=== PATIENT | male | born 1940 | race Caucasian/White ===

== ENCOUNTER 2020-10-06 02:29 | Emergency (ER) | payer MEDICARE, BC ==
[~2020-10-06] VITALS: Ht 185.4 cm; Wt 102.7 kg
[2020-10-06] MEDS ORDERED: KETOROLAC 30 MG/ML 1ML VIAL IV ONE (03:30)
[2020-10-06] MEDS ORDERED: METHOCARBAMOL 1,000 MG/10 ML VIAL (J2800) IV ONE (03:30)
--- NOTE | 2020-10-06 04:20 | REPVR ---
PROCEDURE INFORMATION: Exam: CT Lumbar Spine Without Contrast Exam date and time: 10/06/2020 3:36 AM Age: 80 years old Clinical indication: Pain and injury or trauma; Fall; Blunt trauma (contusions or hematomas); Lumbago with sciatica; Left; Additional info: Left sided back pain after fall TECHNIQUE: Imaging protocol: Computed tomography images of the lumbar spine without contrast. Radiation optimization: All CT scans at this facility use at least one of these dose optimization techniques: automated exposure control; mA and/or kV adjustment per patient size (includes targeted exams where dose is matched to clinical indication); or iterative reconstruction. COMPARISON: No relevant prior studies available. FINDINGS: Vertebrae: There is normal alignment of the visualized spine. Vertebral body heights are normal. There is a fracture involving the superior endplate of the L4 vertebral body without significant depression. Large endplate spurs are seen throughout the lumbar spine. T12-L1: There is a large Schmorl's node in the inferior endplate of T12. The disc is narrowed. There is a small posterior disc osteophyte complex. Mild central canal stenosis. L1-L2: Schmorl's node in the superior endplate of L2. Moderate to severe narrowing of the disc. Large posterior disc osteophyte complex and mild facet joint hypertrophy. Moderate to severe central canal stenosis and bony encroachment upon the bilateral neural foramen. L2-L3: Calcification within the disc. Disc height is maintained. Small posterior disc bulge. Mild facet joint hypertrophy. Mild central canal stenosis. Mild bilateral neural foraminal narrowing. L3-L4: Nondisplaced fracture involving the superior endplate of L4. Calcification within the disc. Fairly well preserved disc height. Posterior disc osteophyte complex and facet and ligamentum flavum hypertrophy resulting in severe central canal stenosis. Mild bilateral neural foraminal narrowing. L4-L5: Calcification within the disc. Fairly well preserved disc height. Posterior disc osteophyte complex, ligamentum flavum hypertrophy and facet hypertrophy. Severe central canal stenosis and moderate bilateral neural foraminal narrowing. L5-S1: Disc calcification and mild narrowing. Posterior disc osteophyte complex. Minimal facet hypertrophy. Mild central canal stenosis. Mild bilateral neural foraminal narrowing. Vasculature: Atherosclerotic changes are present in the abdominal aorta and the iliac arteries. Soft tissues: The paraspinous soft tissues appear unremarkable. IMPRESSION: 1. Fracture involving superior endplate of the L4 vertebral body, without significant depression or loss of height of the vertebra. 2. Multilevel degenerative disc disease with large endplate spurs throughout the lumbar spine and disc osteophyte complexes at each level. Central canal stenosis exacerbated by facet arthropathy and ligamentum flavum hypertrophy at the L3-L4 and L4-L5 levels. Electronically signed by: Angie Benitez On 10/06/2020 04:20:13 AM
[2020-10-06 04:30] VITALS: BP 146/76
[2020-10-06] MEDS ORDERED: OXYCODONE/APAP 5MG/325MG(BULK FOR ED) 1 TABLET PO ONE (04:45)
[2020-10-06] MEDS ORDERED: ROBA750T4 PO (04:46)
[2020-10-06] MEDS ORDERED: PERC5TAB12 PO (04:46)
== END 2020-10-06 04:58 | disposition home or self-care (01) ==
LOC: M ED 02:29
DX: S32.040A Wedge compression fracture of fourth lumbar vertebra, initial encounter for closed fracture (principal); W01.198A Fall on same level from slipping, tripping and stumbling with subsequent striking against other object, initial encounter; Y92.89 Other specified places as the place of occurrence of the external cause; Y93.89 Activity, other specified; Y99.8 Other external cause status; M54.9 Dorsalgia, unspecified; G89.29 Other chronic pain; I25.10 Atherosclerotic heart disease of native coronary artery without angina pectoris
CPT/HCPCS: 72131; 96374; 96375; 99284; J1885; J2800

== ENCOUNTER → 2022-03-06 | Outpatient (CLI) | payer MEDICARE, BC ==
[~2022-03-06] MED LIST: PERC5TAB12 PO; ROBA750T4 PO
== END ==
LOC: M WUC 13:59
PROVIDERS: ATTEND Family Medicine
DX: M25.561 Pain in right knee (principal); M17.11 Unilateral primary osteoarthritis, right knee

== ENCOUNTER → 2022-12-22 | Outpatient (CLI) | payer MEDICARE, BC | LOC: M WUC 13:15 | PROVIDERS: ATTEND Internal Medicine | DX: M54.31 Sciatica, right side (principal); M47.816 Spondylosis without myelopathy or radiculopathy, lumbar region; M47.817 Spondylosis without myelopathy or radiculopathy, lumbosacral region ==

== ENCOUNTER 2023-02-02 02:07 | Emergency (ER) | payer MEDICARE, BC ==
[2023-02-02] MEDS ORDERED: METHOCARBAMOL 1,000 MG/10 ML VIAL IV ONE (03:45)
[2023-02-02] MEDS ORDERED: KETOROLAC 30 MG/ML 1ML VIAL IV ONE (03:45)
[2023-02-02 04:27] LABS: BLOOD UREA NITROGEN 18 MG/DL (9-23); CALCIUM LEVEL 7.9 MG/DL (8.3-10.6); CARBON DIOXIDE LEVEL 27 MMOL/L (20-31); CHLORIDE LEVEL 104 MMOL/L (98-107); CREATININE FOR GFR 0.71 MG/DL (0.70-1.30); GLOMERULAR FILTRATION RATE > 60.0 (>35); GLUCOSE, FASTING 207 MG/DL (74-106); POTASSIUM SERUM 4.1 MMOL/L (3.5-5.1); SODIUM LEVEL 139 MMOL/L (136-145)
[2023-02-02] MEDS ORDERED: PERCOCET 5MG/325MG TAB PO ONE (06:20)
[2023-02-02] MEDS ORDERED: METH-1165 PO (08:58)
[2023-02-02] MEDS ORDERED: PERC5TAB12 PO (08:59)
[2023-02-02 09:20] VITALS: BP 154/68
== END 2023-02-02 09:40 | disposition home or self-care (01) ==
LOC: M ED 02:07 → EDBD 02:07 → M ED 09:40
DX: M50.23 Other cervical disc displacement, cervicothoracic region (principal); M17.11 Unilateral primary osteoarthritis, right knee; K08.89 Other specified disorders of teeth and supporting structures; M25.78 Osteophyte, vertebrae; E11.9 Type 2 diabetes mellitus without complications
CPT/HCPCS: 72125; 73564; 80048; 96374; 96375; 99284; J1885; J2800

== ENCOUNTER 2023-03-24 23:12 | Emergency (ER) | payer MEDICARE, BC ==
[~2023-03-24] VITALS: Ht 185.4 cm; Wt 102.9 kg
[~2023-03-24 23:12] MED LIST changes: +METH-1165 PO
[2023-03-25 00:19] LABS: BASO % 0.3 % (0.0-1.0); EOS # 0.1 10^3/uL (0.0-0.5); EOS % 1.9 % (0.0-3.0); HEMATOCRIT 37.9 % (42.0-52.0); HEMOGLOBIN 12.4 g/dl (13.5-17.5); LYMPH # 1.5 10^3/uL (1.5-5.0); LYMPH % 25.3 % (24.0-44.0); MEAN CORPUSCULAR HEMOGLOBIN 30.6 pg (27.0-33.0); MEAN CORPUSCULAR HGB CONC 32.7 g/dl (32.0-36.5); MEAN CORPUSCULAR VOLUME 93.6 fl (80.0-96.0); MONO # 0.6 10^3/uL (0.0-0.8); MONO % 10.6 % (2.0-8.0); NEUTROPHILS # 3.6 10^3/uL (1.5-8.5); NEUTROPHILS % 60.9 % (36.0-66.0); PLATELET COUNT, AUTOMATED 191 10^3/uL (150-450); RED BLOOD COUNT 4.05 10^6/uL (4.30-6.10); WHITE BLOOD COUNT 5.9 10^3/uL (4.0-10.0)
[2023-03-25 00:28] LABS: INR 1.04; PROTHROMBIN TIME 13.8 SECONDS (12.5-14.5)
[2023-03-25 00:29] LABS: PARTIAL THROMBOPLASTIN TIME 40.2 SECONDS (24.8-34.2)
[2023-03-25] MEDS ORDERED: MORPHINE 2 MG/ML 1ML VIAL IV PRN (00:40)
[2023-03-25 00:42] LABS: ETHYL ALCOHOL (ETHANOL) < 0.003 % (0.000-0.010)
[2023-03-25 00:43] LABS: BLOOD UREA NITROGEN 21 MG/DL (9-23); CALCIUM LEVEL 8.5 MG/DL (8.3-10.6); CARBON DIOXIDE LEVEL 27 MMOL/L (20-31); CHLORIDE LEVEL 104 MMOL/L (98-107); CK-MB VALUE MASS 1.6 NG/ML (<3.6); CPK CREATINE PHOSPHOKINASE 191 U/L (46-171); CREATININE FOR GFR 0.93 MG/DL (0.70-1.30); GLOMERULAR FILTRATION RATE > 60.0 (>35); GLUCOSE, FASTING 180 MG/DL (74-106); MAGNESIUM LEVEL 1.8 MG/DL (1.8-2.4); MB/CK RELATIVE INDEX 0.83 (< OR =4); POTASSIUM SERUM 3.8 MMOL/L (3.5-5.1); SODIUM LEVEL 136 MMOL/L (136-145)
[2023-03-25 00:45] LABS: THYROID STIMULATING HORMONE 3.287 uIU/ML (0.55-4.78)
[2023-03-25 00:46] LABS: FREE T4 1.12 NG/DL (0.89-1.76)
[2023-03-25] MEDS ORDERED: ISOVUE-370 76% 100ML VIAL As Ordered ONE (02:48)
[2023-03-25 03:18] LABS: AMPHETAMINES LEVEL URINE NEGATIVE (NEGATIVE); BARBITURATES URINE NEGATIVE (NEGATIVE); BENZODIAZEPINES URINE NEGATIVE (NEGATIVE); CANNABINOIDS URINE NEGATIVE (NEGATIVE); COCAINE METABOLITE URINE NEGATIVE (NEGATIVE); METHADONE URINE NEGATIVE (NEGATIVE); PHENCYCLIDINE URINE NEGATIVE (NEGATIVE)
[2023-03-25 03:31] LABS: OPIATES URINE POSITIVE (NEGATIVE)
[2023-03-25] MEDS ORDERED: AUGMENTIN 875 MG TAB PO ONE (03:35)
[2023-03-25] MEDS ORDERED: KETOROLAC 30 MG/ML 1ML VIAL IV ONE (03:35)
[2023-03-25 05:00] VITALS: BP 193/84
[2023-03-25] MEDS ORDERED: OXYC1TAB23 PO (05:10)
[2023-03-25] MEDS ORDERED: KETO10TAB PO (05:10)
[2023-03-25] MEDS ORDERED: AMOX875T2 PO (05:10)
[2023-03-25] MEDS ORDERED: OXYCODONE/APAP 5MG/325MG(HOME DOSE PACK) PO ONE (05:15)
== END 2023-03-25 05:42 | disposition home or self-care (01) ==
LOC: M ED 23:12
DX: K08.89 Other specified disorders of teeth and supporting structures (principal); E11.9 Type 2 diabetes mellitus without complications; I10 Essential (primary) hypertension; G47.30 Sleep apnea, unspecified; I44.7 Left bundle-branch block, unspecified; E78.00 Pure hypercholesterolemia, unspecified; Z79.82 Long term (current) use of aspirin; Z79.899 Other long term (current) drug therapy
CPT/HCPCS: 70487; 71045; 80048; 80307; 82077; 82550; 82553; 83605; 83735; 84439; 84443; 84484; 85025; 85610; 85730; 87040; 87486; 87581; 87633; 87798; 93005; 93041; 94760; 96365; 96366; 96375; 99285; J1885; Q9967

== ENCOUNTER 2023-04-19 12:02 | Emergency (ER) | payer MEDICARE, BC ==
[~2023-04-19] VITALS: Ht 185.4 cm; Wt 101.5 kg
[~2023-04-19 12:02] MED LIST changes: +AMOX875T2 PO; +KETO10TAB PO; +OXYC1TAB23 PO
[2023-04-19] MEDS ORDERED: GABA-1171 PO (12:42)
[2023-04-19] MEDS ORDERED: predniSONE 20 MG TAB PO ONE (13:05)
[2023-04-19] MEDS ORDERED: KETOROLAC 30 MG/ML 1ML VIAL IV ONE (13:05)
[2023-04-19] MEDS ORDERED: MORPHINE 2 MG/ML 1ML VIAL IV ONE ×3 (14:10→19:05)
[2023-04-19] MEDS ORDERED: GABAPENTIN 100 MG CAP PO ONE (17:15)
[2023-04-19] MEDS ORDERED: OXYCODONE/APAP 5MG/325MG(HOME DOSE PACK) PO ONE (20:35)
[2023-04-19] MEDS ORDERED: METHOCARBAMOL 1,000 MG/10 ML VIAL IV ONE (20:35)
[2023-04-19 20:39] LABS: RSV AMPLIFICATION NEGATIVE (NEGATIVE)
[2023-04-19] MEDS ORDERED: METH-1164 PO (20:44)
[2023-04-19] MEDS ORDERED: OXYC10TA3 PO (20:44)
[2023-04-19 21:20] VITALS: BP 149/66; TEMP 97.4; O2SAT 96
[2023-04-21] MEDS ORDERED: ASPI81CH33 PO (13:23)
[2023-04-21] MEDS ORDERED: TOUJ1.2I SC (13:24)
[2023-04-21] MEDS ORDERED: GLYB5TAB6 PO (13:25)
[2023-04-21] MEDS ORDERED: ACTO45TA12 PO (13:25)
[2023-04-21] MEDS ORDERED: ENAL1TAB52 PO (13:26)
[2023-04-21] MEDS ORDERED: METO1TAB7 PO (13:26)
[2023-04-21] MEDS ORDERED: ROSU20TA5 PO (13:27)
[2023-04-21] MEDS ORDERED: DILT60CASR PO (13:28)
== END 2023-04-19 21:25 | disposition home or self-care (01) ==
LOC: M ED 12:02
DX: M54.50 Low back pain, unspecified (principal); I11.9 Hypertensive heart disease without heart failure; E11.9 Type 2 diabetes mellitus without complications; Z79.899 Other long term (current) drug therapy
CPT/HCPCS: 72131; 72148; 87631; 96374; 96375; 96376; 99284; J1885; J2800; J7512